=== PATIENT | female | born 1970 | race Caucasian/White ===

== ENCOUNTER 2018-11-24 11:40 | Emergency (ER) | payer OTHER ==
[~2018-11-24] VITALS: Ht 162.6 cm; Wt 65.0 kg
[2018-11-24] MEDS ORDERED: cocaine 4% topical solution 4ml bottle MM ONE (12:00)
--- NOTE | 2018-11-24 12:24 | NUR ---
dr foley administered fady syneprine nasal spray to b/l nostril also the cocaine 4% topical solution used 2ml .wasted 2 ml with mahendra moseley and also with gerardo and jaclyn moseley in the [facility] tolerated the procedure well.
[2018-11-24 12:46] VITALS: BP 151/95
== END 2018-11-24 12:48 | disposition home or self-care (01) ==
LOC: ER 11:41
DX: R04.0 Epistaxis (principal); Z90.49 Acquired absence of other specified parts of digestive tract
CPT/HCPCS: 30901; 99284

== ENCOUNTER 2024-07-20 18:11 | Emergency (ER) | payer OTHER ==
[~2024-07-20] VITALS: Ht 162.6 cm; Wt 49.9 kg
--- NOTE | 2024-07-20 18:16 | Physician Documentation ---
History of Present Illness ~ Chief Complaint: Trauma Level 1 Stated Complaint: HEAD LAC Time Seen by MD: 18:13 Primary Medical Doctor: DR KRYSTYNA LOBO Patient presents to the emergency room covered in blood hypotensive. It was reported that patient was dropped off by private vehicle with a reported ground level fall. Patient is alert to person and birthday but can not tell me the month. She is moving all extremities. Some bruising and deformities to bilateral feet. Large gash to forehead. History limited secondary to patient's clinical condition Tetanus within 5 years?: No Medication Reconciliation Allergies: Coded Allergies: No Known Allergies (Unverified , 11/24/18) Past Medical History Past Medical History: No Pertinent History Past Surgical History: appendectomy Alcohol Use: Occasionally Drug Use: none Review of Systems ROS Review of systems limited secondary to patient's clinical condition Physical Exam General Appearance General: Patient is awake, alert, oriented x2 in mild distress. Covered in blood Airway clear Head: Normocephalic with large gash to forehead measuring 4 cm x 5 cm with skull showing Eyes: Conjunctival normal. EOMI. PERRL. ENT: Mucous membranes moist. Neck: Supple, trachea is midline. Chest: Clear to auscultation bilaterally without rales, rhonchi, or wheezes. There is no accessory muscle use or retractions. Breathing unlabored Cardiac: Bradycardic and regular without murmurs, gallops, or rubs. Abd: Soft, nondistended, nontender, with normoactive bowel sounds. No guarding, rebound, or rigidity. Extremities: Normal strength. Normal range of motion. No deformities or edema. Back: No midline spinal or CVA tenderness. No step-offs Skin: Warm and dry with no significant rash appreciated. Neuro: Cranial nerves II-XII grossly intact. No focal neuro deficits. GCS 11 Procedures Procedures Intubation: Patient's mentation decreasing and not able to maintain her airway very therefore decision to intubate made. 10 mg of etomidate as well as 100 mg of rocuronium administered for RSI. MAC three blade used with bougie to intubate patient. Tube secured at 22 cm at the teeth. Good fogging of tube along with good color change and good oxygenation bilaterally and postprocedure chest x-ray confirms placement. Patient tolerated procedure well without complication. Total time of procedure 5 minutes. Central line: Patient was requiring pressors and multiple medications therefore central line indicated. Using maximum barrier protection and bedside ultrasound for guidance patient was sterilely cleaned and draped. Using modified Seldinger technique a for lumen central line catheter was placed in patient's right IJ. All four lines flushed. Line secured in place with sutures and Tegaderm. Biopatch placed. Patient tolerated procedure well without complication. Postprocedure chest x-ray confirms placement and no pneumothorax. Total time of procedure 15 minutes. RIght foot reduction: Traction pulled on patient's right foot and attempt to realign patient's broken metatarsal. No improvement after traction pulled. Placed in splint with good capillary refill status post splint placement. Laceration/Wound Repair : Anesthesia: none Prep: irrigated by nurse Margins: flaps aligned Foreign Body: not identified Repaired: skin, subcutaneous Suture Size/Type: 4-0 Number of Superficial Sutures: 10 Deep Layer Suture Size/Type: 4-0, vicryl Number Deep Layer Sutures: 3 Tolerated Procedure Well?: other Procedure Note One running stitch on the large laceration on the superior aspect of the skull. Used a three simple interrupted to better approximate the laceration. right brow 9 4-0 sutures Progress Progress Note Patient was disrobed and she was turned in C-spine precautions with no step-offs or tenderness to palpation to vertebra. Time 6:36 p.m.: Was able to speak to son who was on the scene and brought his mother to the hospital. He reports that he received a phone call to bring his mother to the hospital. He states that he saw her on the front porch and that there was some blood in the kitchen. He reports her medical history significant for cirrhosis with gastric banding and possibly ulcers. He states that she chronically has low blood levels secondary to this. She states he thinks that she is not drinking more but she does change smoke but denies any significant drug use. 1907: Son endorses history of seizures over the past six or seven years. Unknown if she takes medications. He says that she began having seizures after she developed cirrhosis. Time 04/15/2047: Spoke with stepmother. The patient is reported to be significant seizure history in likely noncompliant with her medications. Reported that patient had contact with her as well as her stepmother throughout the day regarding she was having low blood pressures and feeling like she was dehydrated and that she needed to go to the doctor. Has been spoke with her at 3:00 p.m. and came home at 6:00 p.m. to find her on the porch in blood. Apparently that has some degree of fall in the bathroom with the toilet seat broken off and blood tract throughout the house to the front porch. Supposedly no alcohol in the past year. Results/Orders Results/Orders Vital Signs 07/20/24 07/20/24 07/20/24 07/20/24 18:14 18:38 19:00 19:07 Pulse 62 54 53 Resp 10 12 13 B/P (MAP) 88/66 111/64 (80) 110/61 (77) Pulse Ox 95 96 100 O2 Delivery Room Air O2 Flow Rate 0 07/20/24 07/20/24 07/20/24 07/20/24 19:21 19:35 20:06 20:30 Temp 97.8 95.0 Pulse 63 55 52 Resp 14 13 10 B/P (MAP) 93/60 (71) 80/43 (55) Pulse Ox 100 99 98 O2 Flow Rate 0 0 07/20/24 07/20/24 07/20/24 07/20/24 20:54 21:00 21:15 21:31 Pulse 51 56 Resp 9 20 B/P (MAP) 76/42 76/42 (53) 126/66 (86) 158/91 Pulse Ox 97 98 O2 Flow Rate 0 0 07/20/24 07/20/24 07/20/24 07/20/24 21:31 21:32 22:00 22:30 Pulse 72 58 Resp 14 15 B/P (MAP) 153/87 119/65 (83) Pulse Ox 100 100 FiO2 40 30 07/20/24 07/20/24 07/20/24 07/20/24 22:30 22:52 22:54 23:00 Temp 96.7 96.9 Pulse 63 63 Resp 14 12 B/P (MAP) 120/74 (89) 162/83 132/66 (88) Pulse Ox 100 100 FiO2 30 30 30 07/20/24 07/20/24 07/20/24 07/21/24 23:00 23:02 23:30 00:00 Temp 97.3 97.5 Pulse 62 60 Resp 12 12 B/P (MAP) 132/66 137/76 129/72 (91) 140/72 (94) Pulse Ox 100 100 FiO2 30 30 Laboratory Tests Test 07/20/24 18:17 07/20/24 19:49 07/20/24 21:47 07/20/24 22:44 White Blood Count 8.1 10.4 Red Blood Count 3.64 L 2.85 L Hemoglobin 10.0 L 7.8 L Hematocrit 30.2 L 23.2 L Mean Corpuscular Volume 82.8 81.7 Mean Corpuscular Hemoglobin 27.6 27.4 Mean Corpuscular Hemoglobin Concent 33.3 33.5 Red Cell Distribution Width 18.5 H 18.6 H Platelet Count 147 122 L Mean Platelet Volume 8.8 8.2 Neutrophils (%) (Auto) 66.4 72.2 Lymphocytes (%) (Auto) 19.6 L 9.9 L Monocytes (%) (Auto) 11.1 17.1 H Eosinophils (%) (Auto) 2.1 0.4 Basophils (%) (Auto) 0.8 0.4 Neutrophils # (Auto) 5.4 7.5 Lymphocytes # (Auto) 1.6 1.0 L Monocytes # (Auto) 0.9 1.8 H Eosinophils # (Auto) 0.2 0.0 Basophils # (Auto) 0.1 0.0 CBC Comment Prothrombin Time 12.4 H INR International Normalized Ratio 1.2 Activated Partial Thromboplast Time 25 Coagulation Comments Sodium Level 142 145 Potassium Level 3.8 4.0 Chloride Level 104 111 H Carbon Dioxide Level 20.9 L 23.4 L Anion Gap 17 H 11 Blood Urea Nitrogen 37 H 37 H Creatinine 3.13 H 2.54 H Estimated GFR/1.73 m2 16 20 BUN/Creatinine Ratio 11.8 14.6 Glucose Level 172 H 121 H Calcium Level 9.3 7.9 L Ammonia 52 H Total Creatine Kinase 336 H Albumin 3.4 2.8 L Chemistry Comments Ethyl Alcohol Level < 10 Lactic Acid Level 2.6 H 1.5 Total Bilirubin 1.1 H Aspartate Amino Transf (AST/SGOT) 42 H Alanine Aminotransferase (ALT/SGPT) 19 Alkaline Phosphatase 132 H Total Protein 5.8 L Globulin 3.0 Albumin/Globulin Ratio 0.9 L Procalcitonin 0.23 Urine Specimen Description Roy cath Urine Color Yellow Urine Clarity Clear Urine pH 6.0 Urine Specific Effie 1.010 Urine Protein Negative Urine Glucose (UA) Negative Urine Ketones Negative Urine Occult Blood Negative Urine Nitrite Negative Urine Bilirubin Negative Urine Urobilinogen 0.2 Urine Leukocyte Esterase Negative Urine Culture Indicated Not ind Volume Urine Centrifuged 10 ml Urine Comment Urine Opiates Screen Negative Urine Methadone Screen Negative Urine Fentanyl Screen Negative Urine Barbiturates Screen Negative Urine Phencyclidine Screen Negative Urine Amphetamines Screen Negative Urine Benzodiazepines Screen Negative Urine Cocaine Screen Negative Urine Cannabinoids Screen Negative Drug Screen Comment Differential Total Cells Counted 100 Neutrophils % (Manual) 76.0 H Lymphocytes % (Manual) 11.0 L Monocytes % (Manual) 13.0 H Platelet Estimate Decreased Red Blood Cell Morphology Perf Basophilic Stippling Anisocytosis 2+ Test 07/20/24 22:49 07/20/24 23:11 07/21/24 23:52 Blood Gas Specimen Type Arterial Blood Gas Puncture Site Rr O2 Saturation 98.8 H Arterial Blood pH (Temp corrected) 7.485 H Arterial Blood pCO2 (Temp correct) 27.4 L Arterial Blood pO2 (Temp corrected) 184.6 H Arterial Blood PO2/FiO2 Ratio 4.74 Arterial Blood HCO3 20.3 L Arterial Blood Base Excess -2.7 L Arterial Blood Oxyhemoglobin 98.4 H Arterial Blood Carboxyhemoglobin 0.1 L Arterial Blood Methemoglobin 0.3 Arterial Blood Deoxyhemoglobin 1.2 Ramon Test Modified Blood Gas Hemoglobin 8.4 L Blood Gas Temperature 36.0 Blood Gas Set Respiration Rate 14 Blood Gas Modality ac/prvc FiO2 40.0 Blood Gas Tidal Volume 450 Blood Gas PEEP 5 Glucometer 130 H Stool Occult Blood Positive H Microbiology Date/Time Source Procedure Growth Status 07/20/24 19:49 Blood Arm Left Blood Culture - Final Staph Hominis Ssp. Hominis Enterococcus Faecium Complete EKG/XRAY/CT/US/VASC/MRI EKG : Additional Comment EKG interpreted by myself shows time of 18 17, rate 52, sinus bradycardia, normal axis, no ST changes Medical Decision Making Findings Patient presented to the emergency room brought by private vehicle with significant head laceration covered in blood. Differentials include but are not limited to intracranial bleed, concussion, anemia, dehydration, postictal state therefore emergent labs and imaging indicated. CTs all reassuring including head neck facial chest abdomen and pelvis however patient's mentation slowly declined throughout her hospital stay in my emergency room to the point where there was concern for her airway therefore decision to intubate made. Patient intubated without issue. Patient also initially responded to some IV fluids however became hypotensive. Empirical antibiotics, Ancef, administered as well as 3 L of IV fluids. No elevation of white blood cell count no procalcitonin. Patient does have acute kidney injury in the possibility of carvedilol overdose in the light of acute kidney injury therefore empirical calcium ordered. Patient is requiring pressors therefore central line placed. Patient does have deformity to bilateral feet and x-rays performed did show comminuted fracture. I did speak briefly with [employer] farm manager, Dr. Leung, who felt that she would need surgery, unfortunately patient is too unstable for this. We were able to get pulses by Doppler on bilateral feet. Patient's lacerations were irrigated and sutured. Patient will likely need a more cosmetic suture performed on forehead as the underlying muscle has been avulsed from the skull. Patient was loaded with 1 g of Keppra. No seizure activity in our emergency room. As patient has become a neuro case and we do not have neurological services or neurosurgeon a decision to transfer patient to appropriate facility was made and patient has been accepted at [facility] here in [place]. Given patient's history of esophageal varices and anemia NG-tube was omitted after intubation. Repeat hemogram did show significant drop in hemoglobin however she did receive 3 L of IV fluids, that being said guaiac was performed which was positive and given her history of esophageal varices Protonix ordered however octreotide was not as ambulance is here to take patient to higher level care. I will not delay transport for this. This has been communicated with accepting physician at [facility]. Departure Disposition: HOME / SELF CARE / HOMELESS Admission Level of Care: Critcal Care Impression: Primary Impression: Postconcussive syndrome Additional Impressions: Head strike Respiratory failure Hypotension Acute kidney injury History of seizure Foot fracture Laceration of head Hyperammonemia Hyperuricemia Cirrhosis Guaiac positive stools Referrals: NO PRIMARY CARE PROVIDER (PCP) Critical Care Note Total Time (mins): 128 Critical Care Note The very real possibility of a deterioration of this patient's condition required the highest level of my preparedness for sudden, emergent intervention. I provided critical care services, which included medication orders, frequent reevaluations of the patient's condition and response to treatment, ordering and reviewing test results, and discussing the case with various consultants. Excludes time spent performing separately billable procedures. The critical care time associated with the care of the patient was 128 minutes not counting procedures Signature Scribe Signature: No scribe Attestation: The note accurately reflects work and decisions made by me.Eh Aguilera MD 07/21/24 22:23 EH AGUILERA MD July 20, 2024 18:16 NYA GARRIDO NP July 20, 2024 23:32
--- NOTE | 2024-07-20 18:20 | ELECTROCARDIOGRAPH REPORT ---
[facility] Test Date: 2024-07-20 Test Time: 18:17:19 Pat Name: MATEO PEACE Department: [facility]- Patient ID: [facility]-[id number] Room: Gender: F Engineering Research Manager: : 1970 Requested By: MARK LEWIS Order Number: [id number] Reading MD: Dr. Bernardino Merritt Measurements Intervals [place] Rate: 52 P: 66 GA: 127 QRS: 66 QRSD: 94 T: 61 QT: 541 QTc: 504 Interpretive Statements Pacemaker spikes or artifacts Sinus bradycardia Borderline prolonged QT interval Baseline wander in lead(s) V2 Electronically Signed On 07-24-2024 13:44:[address] Bernardino Merritt Please click the below link to view image of tracing.
[2024-07-20 18:26] LABS: BASOPHILS # (AUTO) 0.1 X10'3 (0-0.2); BASOPHILS % (AUTO) 0.8 % (0-1); EOSINOPHILS # (AUTO) 0.2 X10'3 (0-0.9); EOSINOPHILS % (AUTO) 2.1 % (0-6); HEMATOCRIT 30.2 % (35.0-45.0); LYMPHOCYTES # (AUTO) 1.6 X10'3 (1.1-4.8); LYMPHOCYTES % (AUTO) 19.6 % (21-51); MEAN CORPUSCULAR HEMOGLOBIN 27.6 PG (27.0-31.0); MEAN CORPUSCULAR HGB CONC 33.3 g/dL (33.0-36.5); MEAN CORPUSCULAR VOLUME 82.8 FL (78-98); MEAN PLATELET VOLUME 8.8 FL (7.4-10.4); MONOCYTES # (AUTO) 0.9 X10'3 (0-0.9); MONOCYTES % (AUTO) 11.1 % (2-12); NEUTROPHILS # (AUTO) 5.4 X10'3 (1.8-7.7); NEUTROPHILS % (AUTO) 66.4 % (42-75); PLATELET COUNT 147 X10'3 (140-440); RED BLOOD COUNT 3.64 X10'6 (4.20-5.60); RED CELL DISTRIBUTION WIDTH 18.5 % (11.5-14.5); WHITE BLOOD COUNT 8.1 X10'3 (4.5-11.0)
[2024-07-20 18:39] LABS: ALBUMIN 3.4 G/DL (3.4-5.0); ANION GAP 17 (8-16); APTT 25 SECONDS (22-32); BLOOD UREA NITROGEN 37 MG/DL (7-18); BUN/CREATININE RATIO 11.8 (10.0-20.0); CALCIUM 9.3 MG/DL (8.5-10.1); CHLORIDE 104 MMOL/L (99-107); CREATINE KINASE 336 U/L (26-192); CREATININE 3.13 MG/DL (0.40-0.90); GLUCOSE 172 MG/DL (70-104); INR 1.2 INR; POTASSIUM 3.8 MMOL/L (3.5-5.1); PROTHROMBIN TIME 12.4 SECONDS (9.0-12.0); SODIUM 142 MMOL/L (135-145); TOTAL CARBON DIOXIDE 20.9 MMOL/L (24-32); eCRCL 17 ML/MIN; eGFR 16 ML/MIN
[2024-07-20 18:51] LABS: ETHANOL < 10 MG/DL (<10)
--- NOTE | 2024-07-20 18:52 | RADIOLOGY REPORT ---
EXAM: CT CT HEAD INDICATION: heat trauma EXAM DATE: 07/20/2024 06:24 PM COMPARISON: None TECHNIQUE: CT of the head without intravenous contrast. Radiation Dose Information: [place] [address] mGy. Dose-length product is 1461.30 mGy*cm FINDINGS: There is no evidence of acute intracranial hemorrhage, extra-axial collection, mass effect, midline s hift, herniation or hydrocephalus. The ventricles, sulci and cisterns are age appropriate. The chahal-w amador differentiation is intact. The visualized paranasal sinuses and mastoid air cells are clear. The bony calvarium appears normal. There is soft tissue with laceration seen in the right frontal region .. IMPRESSION: 1. No evidence of acute intracranial hemorrhage, mass effect or hydrocephalus. 2. Soft tissue injury of the right anterior frontal region
--- NOTE | 2024-07-20 18:53 | RADIOLOGY REPORT ---
EXAM: CT CT CERVICAL SPINE HISTORY: heat trauma COMPARISON: None CTDIvol 19.6 mGy, DLP 473.4 mGy*cm. TECHNIQUE: Multiple axial CT images of the spine were obtained using bone algorithm. Axial and chahal l reformatting was done. Bone and soft tissue windows were reviewed. FINDINGS: No evidence of definite acute fracture, spinal dislocation, or significant appearing acute subluxatio n is seen. Degenerative disc space narrowing at C6-C7. IMPRESSION: No definite CT evidence of acute fracture or dislocation of the bony cervical spine.
[2024-07-20] MEDS: normal saline 1000ML IV soln IVB ONE (19:05)
--- NOTE | 2024-07-20 19:06 | RADIOLOGY REPORT ---
EXAM: CT CT CHEST ABDOMEN PELVIS INDICATION: uawv TECHNIQUE: Volumetric multidetector CT images of the chest, abdomen and pelvis were obtained after th e administration of IV contrast. All CT scans at this facility use dose modulation, iterative reconst ruction, and/or weight based dosing when appropriate to reduce radiation dose to as low as reasonably achievable. COMPARISON: None FINDINGS: Chest: The thyroid gland is unremarkable. Mild cardiomegaly. Trace pericardial effusion. No evidence of aortic aneurysm. Pulmonary trunk is nor mal in size. No significant mediastinal lymphadenopathy. Bilateral dependent atelectasis. No pneumothorax, pleural effusion or focal airspace consolidation. Soft tissues are unremarkable. No destructive osseous lesions noted. Abdomen and pelvis: Subtle micronodular contour of the liver. Mild splenomegaly. 1.5 x 1.8 cm nodular soft tissue density is noted within the left lateral upper to mid abdomen inferior to the spleen which may represent a s mall splenule. Otherwise, Liver, spleen, pancreas and adrenal glands are unremarkable. Mild distentio n of the gallbladder which is otherwise unremarkable. Kidneys, ureters unremarkable. Urinary bladder is decompressed. Uterus and adnexa are unremarkable. Mild gastric wall thickening. Small bowel loops unremarkable. Appendix is not definitely visualized. Small amount of fecal material within the colon. Colonic diverticulosis without diverticulitis. No evidence of intraperitoneal free air or free fluid. No evidence of aortic aneurysm. Cwyd-yf-fnwsnoyj atherosclerotic calcification of the aorta and bila teral iliacs. Multiple subcentimeter retroperitoneal lymph nodes measuring up to 0.8 cm which may be reactive or ne oplastic. Tiny fat containing umbilical hernia. Mild left lower back subcutaneous fat stranding. No destructive osseous lesions are noted. No evidence of acute bony abnormalities. IMPRESSION: No evidence of acute intrathoracic abnormalities. Mild gastric wall thickening which may be due to inadequate distention but gastritis not excluded. Subtle micronodular contour Of the liver which may be seen with cirrhosis. Mild splenomegaly. Colonic diverticulosis without diverticulitis. 1.5 x 1.8 cm nodular soft tissue density is noted within the left lateral upper to mid abdomen inferi or to the spleen which may represent a small splenule. Mesenteric nodular lesion can not be excluded.
--- NOTE | 2024-07-20 19:09 | RADIOLOGY REPORT ---
CLINICAL INDICATION: bruising BILATERAL TECHNIQUE: 3 radiographic views of the left foot were obtained. Comparison: None FINDINGS/IMPRESSION: There is no evidence of acute fracture or dislocation. The visualized joint space is well maintained. The alignment is anatomical. There is no radiopaque foreign body.
[2024-07-20] MEDS: levetiracetam-NACL1000mg/100ml 100 ML IV ONE (19:16)
--- NOTE | 2024-07-20 19:28 | RADIOLOGY REPORT ---
CHEST RADIOGRAPH Indication: Hypotension Technique: Single frontal view of the chest was obtained COMPARISON: None FINDINGS: Lines and Tubes: None Lungs: Clear Pleura: No effusion. No pneumothorax. Cardiomediastinal contours: Unremarkable Bones: Unremarkable IMPRESSION: No abnormality demonstrated.
--- NOTE | 2024-07-20 19:35 | RADIOLOGY REPORT ---
CLINICAL INDICATION: BRUISING BILATERAL TECHNIQUE: 3 radiographic views of the right foot were obtained. Comparison: None FINDINGS/IMPRESSION: There is acute comminuted moderately displaced fracture of the proximal half of the 1st metatarsal wi th acute comminuted displaced fracture of the distal metadiaphysis of the 2nd metatarsal and acute m ildly displaced fractures of the distal metaphysis of the 3rd and 4th metatarsals. There is associat ed soft tissue edema. Correlation is also recommended for Lisfranc's injury.
[2024-07-20] MEDS ORDERED: LIDOcaine 1% W/epiNEPHrine 1:200,000 10ml vial IJ ONE (19:45)
--- NOTE | 2024-07-20 20:08 | RADIOLOGY REPORT ---
HISTORY: truama TECHNIQUE: Nonenhanced axial images through the facial bones with coronal and sagittal MPR. Radiation Dose Information: CT Dose: CTDI volume is 54.49 mGy. Dose-length product is 620091 mGy*cm FINDINGS: Mandible: No abnormality Maxilla: No abnormality Pterygoid plates: No abnormality Zygomatic processes: Normal. Zygomatic arches: Normal Orbits: Normal Sinuses: Normal well aerated Facial swelling: There is frontal scalp laceration soft tissue swelling pronounced in the right side IMPRESSION: 1. No acute facial fractures. 2. Frontal scalp laceration more pronounced in the right side Radiation optimization: All CT scans at this facility use at least one of these dose optimization john hniques: automated exposure control mA and/or kV adjustment per patient size (includes targeted exam s where dose is matched to clinical indication) or iterative reconstruction.
[2024-07-20 20:41] LABS: ALANINE AMINOTRANSFERASE 19 U/L (12-78); ALBUMIN 2.8 G/DL (3.4-5.0); ALBUMIN/GLOBULIN RATIO 0.9 (1.1-1.5); ALKALINE PHOSPHATASE 132 IU/L (46-116); ANION GAP 11 (8-16); ASPARTATE AMINO TRANSFERASE 42 U/L (10-37); BILIRUBIN,TOTAL 1.1 MG/DL (0.1-1.0); BLOOD UREA NITROGEN 37 MG/DL (7-18); BUN/CREATININE RATIO 14.6 (10.0-20.0); CALCIUM 7.9 MG/DL (8.5-10.1); CHLORIDE 111 MMOL/L (99-107); CREATININE 2.54 MG/DL (0.40-0.90); GLUCOSE 121 MG/DL (70-104); SODIUM 145 MMOL/L (135-145); TOTAL CARBON DIOXIDE 23.4 MMOL/L (24-32); TOTAL PROTEIN 5.8 G/DL (6.4-8.2); eCRCL 21 ML/MIN; eGFR 20 ML/MIN
[2024-07-20] MEDS: NORepinephrine 8mg/ 250ml NS 250 ML IV ONE (20:54)
[2024-07-20] MEDS: propofol 1000mg/100ml bottle 100 ML IV PRN (21:31)
[2024-07-20 21:32] VITALS: BP 155/86; PULSE 72; RESP 14; O2SAT 100
[2024-07-20] MEDS: etomidate 2mg/ml inj. IV ONE (21:34)
[2024-07-20] MEDS: rocuronium 10mg/ml inj IV ONE (21:34)
[2024-07-20] MEDS: LIDOcaine 1% W/epiNEPHrine 1:100,000 20ml vial IJ ONE (21:35)
--- NOTE | 2024-07-20 21:47 | RADIOLOGY REPORT ---
EXAM: DI CHEST,SINGLE VIEW CLINICAL HISTORY: iintubation TECHNIQUE: Single AP view of the chest WID: COMPARISON: DI CHEST,SINGLE VIEW on DOS: 07/20/24 FINDINGS: Lines and tubes: Endotracheal tube In place with the tip projecting 3.7 cm above the dianne. Chest: The heart size and pulmonary vasculature is within normal limits. No pleural effusion, pneumothorax, or consolidation. The osseous structures are grossly intact. IMPRESSION: Endotracheal tube in place with the tip projecting 3.7 cm above the dianne.
[2024-07-20 22:02] LABS: BILIRUBIN,URINE NEGATIVE (Neg); CLARITY,URINE CLEAR (Clear); COLOR,URINE YELLOW (Yellow); GLUCOSE, URINE NEGATIVE (Neg); KETONES,URINE NEGATIVE (Neg); LEUKOCYTE ESTERASE ,URINE NEGATIVE (Neg); NITRITES, URINE NEGATIVE (Neg); OCCULT BLOOD,URINE NEGATIVE (Neg); PROTEIN,URINE NEGATIVE (Neg); UROBILINOGEN,URINE 0.2 E.U/dL (0.2-1.0)
[2024-07-20 22:08] LABS: UA COLLECTION TYPE FOLEY CATH
[2024-07-20 22:29] LABS: URINE AMPHETAMINE SCREEN NEGATIVE (Neg); URINE BARBITUATE SCREEN NEGATIVE (Neg); URINE BENZODIAZEPINES SCREEN NEGATIVE (Neg); URINE CANNABINOID SCREEN NEGATIVE (Neg); URINE COCAINE SCREEN NEGATIVE (Neg); URINE METHADONE SCREEN NEGATIVE (Neg); URINE OPIATE SCREEN NEGATIVE (Neg); URINE PHENCYCLIDINE SCREEN NEGATIVE (Neg)
[2024-07-20 22:48] LABS: BASOPHILS % (AUTO) 0.4 % (0-1); EOSINOPHILS % (AUTO) 0.4 % (0-6); HEMATOCRIT 23.2 % (35.0-45.0); HEMOGLOBIN 7.8 g/dl (12.0-16.0); LYMPHOCYTES % (AUTO) 9.9 % (21-51); MEAN CORPUSCULAR HEMOGLOBIN 27.4 PG (27.0-31.0); MEAN CORPUSCULAR HGB CONC 33.5 g/dL (33.0-36.5); MEAN CORPUSCULAR VOLUME 81.7 FL (78-98); MEAN PLATELET VOLUME 8.2 FL (7.4-10.4); MONOCYTES # (AUTO) 1.8 X10'3 (0-0.9); MONOCYTES % (AUTO) 17.1 % (2-12); NEUTROPHILS # (AUTO) 7.5 X10'3 (1.8-7.7); NEUTROPHILS % (AUTO) 72.2 % (42-75); PLATELET COUNT 122 X10'3 (140-440); RED BLOOD COUNT 2.85 X10'6 (4.20-5.60); RED CELL DISTRIBUTION WIDTH 18.6 % (11.5-14.5); WHITE BLOOD COUNT 10.4 X10'3 (4.5-11.0)
[2024-07-20 22:53] LABS: ABG BASE EXCESS -2.7 mmol/L (-2.0-3.0); ABG HCO3 20.3 mmol/L (21.0-28.0); ABG OXYGEN SATURATION 98.8 % (94.0-98.0); ABG PCO2 (T) 27.4 mmHg (32.0-45.0); ABG PH (T) 7.485 (7.350-7.450); ABG PO2 (T) 184.6 mmHg (83.0-108.0); ALLEN'S TEST Modified; FCOHb 0.1 % (0.5-1.5); FHHb 1.2 % (0.0-5.0); FMetHb 0.3 % (0.0-1.5); FO2Hb 98.4 % (94.0-98.0); MODE ac/prvc; PEEP 5 cm H2O; RESPIRATORY RATE 14 b/min; TIDAL VOLUME 450 mL; TOTAL HEMOGLOBIN 8.4 G/dl (12.0-16.0)
--- NOTE | 2024-07-20 22:56 | RADIOLOGY REPORT ---
CHEST RADIOGRAPH Indication: CENTRAL LINE PLACEMENT Technique: Single frontal view of the chest was obtained COMPARISON: DI CHEST,SINGLE VIEW on DOS: 07/20/24 FINDINGS: Lines and Tubes: Interval insertion of right IJ central venous catheter with its projecting over prox imal SVC. ETT in satisfactory position with its tip approximately 3.3 cm above the dianne. Lungs: Clear Pleura: No effusion. No pneumothorax. Cardiomediastinal contours: Unremarkable IMPRESSION: No abnormality demonstrated.
[2024-07-20] MEDS: ceFAZolin/D5W- 1GM premix 50 ML IV ONE (23:02)
[2024-07-20] MEDS: TETanus/Pertussis (Acell)/Diphther VAC/PF (Tdap-Adult) 0.5ml syringe IMVAC ONE (23:03)
[2024-07-20] MEDS: CALCIUM GLUC 1gm/50ml NACL,iso 50 ML IV SCH (23:05)
[2024-07-20 23:08] LABS: PLATELET ESTIMATE DECREASED; TOTAL CELLS COUNTED 100
[2024-07-20 23:09] LABS: ANISOCYTOSIS 2+
[2024-07-20] MEDS ORDERED: octreotide 100mcg/1 ml ampule IV ONE (23:55)
[2024-07-20] MEDS: pantoprazole 40 MG vial IV ONE (23:58)
[2024-07-21] VITALS: BP 140/72; PULSE 60; RESP 12; TEMP 97.5; O2SAT 100
[2024-07-21 00:25] LABS: OCCULT BLOOD STOOL POSITIVE (Neg)
== END 2024-07-21 01:06 | disposition hospice, inpatient (51) ==
LOC: ER 18:11
DX: S92.311A Displaced fracture of first metatarsal bone, right foot, initial encounter for closed fracture (principal); S92.331A Displaced fracture of third metatarsal bone, right foot, initial encounter for closed fracture; S92.321A Displaced fracture of second metatarsal bone, right foot, initial encounter for closed fracture; S92.341A Displaced fracture of fourth metatarsal bone, right foot, initial encounter for closed fracture; S01.91XA Laceration without foreign body of unspecified part of head, initial encounter; F07.81 Postconcussional syndrome; J96.90 Respiratory failure, unspecified, unspecified whether with hypoxia or hypercapnia; K74.60 Unspecified cirrhosis of liver; N17.9 Acute kidney failure, unspecified; E79.0 Hyperuricemia without signs of inflammatory arthritis and tophaceous disease; R19.5 Other fecal abnormalities; Z90.49 Acquired absence of other specified parts of digestive tract; W18.30XA Fall on same level, unspecified, initial encounter; Y93.89 Activity, other specified; Y92.89 Other specified places as the place of occurrence of the external cause; Y99.8 Other external cause status
CPT/HCPCS: 12052; 29515; 31500; 36415; 36556; 36600; 70450; 70486; 71045; 71250; 72125; 73630; 74176; 80048; 80053; 80305; 80320; 81003; 82140; 82272; 82550; 82803; 82948; 83605; 84145; 85018; 85025; 85610; 85730; 86885; 86900; 86901; 86920; 87040; 87077; 87186; 90471; 90715; 93005; 96365; 96366; 96367; 96368; 96375; 99291; 99292; J0610; J0690; J1953; J2470; J2704; J3490; J7030; 85007; A4620; A6446; A6449; C1751